=== PATIENT | male | born 1955 | race Caucasian/White ===

== ENCOUNTER 2017-04-23 07:35 | Day surgery (SDC) | payer OTHER ==
[2017-04-20 11:00] VITALS: BMI 29.8
--- NOTE | 2017-04-23 06:20 | P.GSHP ---
History of Present Illness H&P Date: 04/23/17 CHIEF COMPLAINT: Cholecystitis HISTORY OF PRESENT ILLNESS: The patient is a 62-year-old male who presents with history of epigastric including right upper quadrant abdominal pain. He underwent diagnostic studies for the gallbladder. Separately his clinical picture was consistent with cholecystitis. Now he presents for surgical intervention. PAST MEDICAL HISTORY: Please see list PAST SURGICAL HISTORY: Please see list MEDICATIONS: Please see list ALLERGIES: Denies. SOCIAL HISTORY: No illicit drug use or recent tobacco use FAMILY HISTORY: Pertinent for gallbladder disease REVIEW OF ORGAN SYSTEMS: CONSTITUTIONAL: No reports of fevers or chills. HEENT: Denies any troubles with the vision or hearing. ENDOCRINE: No reports of hypothyroidism. No diabetes. RESPIRATORY: No recent pneumonias. CARDIOVASCULAR: Denies chest pain or palpitations GI: Diverticulitis. MUSCULOSKELETAL: Has occasional joint pain including back pain. NEURO: No seizure disorders or headaches. No recent stroke. PSYCH: No depression or suicidal ideation. HEMATOLOGIC: No personal or family history of DVTs or pulmonary emboli. PHYSICAL EXAM: VITAL SIGNS: Afebrile vital signs stable GENERAL: Well-developed pleasant male in no acute distress. HEENT: No scleral icterus. Extraocular movements grossly intact. Moist buccal mucosa. NECK: Supple without lymphadenopathy. CHEST: Unlabored respirations. Equal bilateral excursions. CARDIOVASCULAR: Regular rate regular rhythm rhythm. Distal 2+ pulses. ABDOMEN: Soft, nondistended. Tender along the epigastrium and right upper quadrant. MUSCULOSKELETAL: No clubbing, cyanosis, or edema. NEURO :Moves all extremities 4+/5. PSYCH: Alert and oriented to person, place and time. ASSESSMENT: 1. Epigastric and right upper quadrant abdominal pain 2. Chronic cholecystitis PLAN: 1. Will need a laparoscopic cholecystectomy possible open. Benefits and risks were described. 2. Heparin for DVT prophylaxis 5000 units. 3. Antibiotic prophylaxis. 4. Will need CBC and comprehensive metabolic panel on day of his procedure. Past Medical History Past Medical History: Prostate Disorder Additional Past Medical History / Comment(s): HX OF PERFORATED DIVERTICULITIS WITH COLOSTOMY(04/25/2015) AND REVERSAL 2016. HAS ENLARGED PROSTATE. History of Any Multi-Drug Resistant Organisms: None Reported Past Surgical History: Appendectomy, Tonsillectomy Additional Past Surgical History / Comment(s): BILATERAL ROTATOR CUFF. 04/25/15 PERFORATED DIVERTICULITIS W/ COLOSTOMY AND REVERSAL 04/01/16. LYSIS OF ADHESIONS & HERNIA REPAIR. , CYST ON NECK, CIRCUMCISION, RIGHT KNEE ARTHROSCOPY , COLONOSCOPY. Past Anesthesia/Blood Transfusion Reactions: No Reported Reaction Additional Past Anesthesia/Blood Transfusion Reaction / Comment(s): stated " felt had a hard time breathing after bowel resection and colostomy in the recovery room" Smoking Status: Never smoker - Past Family History Brother(s) Family Medical History: Diabetes Mellitus Father Family Medical History: Diabetes Mellitus Mother Family Medical History: Cancer Additional Family Medical History / Comment(s): THYROID CA @ 18 YRS OLD Medications and Allergies Home Medications Medication Instructions Recorded Confirmed Type Pantoprazole Sodium [Protonix] 40 mg PO DAILY 04/20/17 04/20/17 History Vitamin B Complex 1 each PO DAILY 04/20/17 04/20/17 History Allergies Allergy/AdvReac Type Severity Reaction Status Date / Time Penicillins Allergy "PASSED Verified 04/20/17 10:50 OUT" & NAUSEA AND VOMITING.
[~2017-04-23 07:35] MED LIST: DEXAMETHASONE SOD PHOSPHATE 10 MG/ML 1 ML VIAL IV ONE; HEPARIN SODIUM,PORCINE 5,000 UNIT/ML 1 ML VIAL SQ ONE; HYDROmorphone 0.5 MG/0.5 ML SYRINGE IVP PRN; LIDOCAINE 1% 20 ML VIAL (10MG/ML) FOR IV START INTRADERMA PRN; ONDANSETRON 4 MG/2 ML VIAL IVP ONE; SCOPOLAMINE 1.5MG/72HR PATCH TRANSDERM ONE; ceFAZolin IN SWFI 2 GM/20 ML SYRINGE IVP ONE
[2017-04-23] MEDS ORDERED: LIDOCAINE 1% 20 ML VIAL (10MG/ML) FOR IV START INTRADERMA ONE (08:18)
[2017-04-23] MEDS: LACTATED RINGERS 1,000 ML IV SCH ×2 (08:19→17:09)
[2017-04-23 08:30] LABS: Basophils % (A) 1 %; CH 30.6; CHCM 35.2; Eosinophils # (A) 0.2 k/uL (0-0.7); Eosinophils % (A) 5 %; HCT 45.4 % (39.0-53.0); HDW 2.77; HGB 15.9 gm/dL (13.0-17.5); Luc # (Auto) 0.06; Luc % (Auto) 1; Lymphocytes # (A) 1.2 k/uL (1.0-4.8); Lymphocytes % (A) 25 %; MCH 30.6 pg (25.0-35.0); MCHC 35.1 g/dL (31.0-37.0); MCV 87.4 fL (80.0-100.0); Mean Platelet Volume 7.3; Monocytes # (A) 0.3 k/uL (0-1.0); Monocytes % (A) 6 %; Neutrophils # (A) 2.9 k/uL (1.3-7.7); Neutrophils % (A) 62 %; RDW 14.1 % (11.5-15.5); WBC 4.7 k/uL (3.8-10.6); WBC (Perox) 4.46
[2017-04-23 08:44] LABS: Anion Gap 10 mmol/L; Calcium 9.6 mg/dL (8.4-10.2); Carbon Dioxide 24 mmol/L (22-30); Chloride 108 mmol/L (98-107); Glucose 88 mg/dL (74-99); Non-African American GFR(MDRD) >60 (>60 ml/min/1.73 sqM); Sodium 142 mmol/L (137-145); Total Bilirubin 1.3 mg/dL (0.2-1.3); Total Protein 7.1 g/dL (6.3-8.2)
[2017-04-23 08:49] LABS: Blood Urea Nitrogen 15 mg/dL (9-20); Potassium 4.1 mmol/L (3.5-5.1)
[2017-04-23 08:50] LABS: ALT 32 U/L (21-72); AST 28 U/L (17-59); Alkaline Phosphatase 63 U/L (38-126)
[2017-04-23] MEDS ORDERED: ROCURONIUM BROMIDE 10 MG/ML 10 ML VIAL IV ONE (09:39)
[2017-04-23] MEDS ORDERED: LIDOCAINE 1% INJ 10MG/ML (20 ML MDV) ONE (09:39)
[2017-04-23] MEDS ORDERED: HYDROmorphone (PF) 1 MG/ML ONE (09:39)
[2017-04-23] MEDS ORDERED: fentaNYL (PF) 50 MCG/ML 2 ML AMP ONE (09:39)
[2017-04-23] MEDS ORDERED: NEOSTIGMINE 1 MG/ML 10 ML VIAL ONE (09:39)
[2017-04-23] MEDS ORDERED: PROPOFOL 10 MG/ML 20 ML VIAL IV ONE (09:39)
[2017-04-23] MEDS ORDERED: KETOROLAC 30 MG/ML 1 ML VIAL ONE (09:39)
[2017-04-23] MEDS ORDERED: GLYCOPYRROLATE 0.2 MG/ML 2 ML VIAL ONE (09:39)
[2017-04-23] MEDS ORDERED: MIDAZOLAM 2 MG/2 ML VIAL ONE (09:39)
[2017-04-23] MEDS ORDERED: SUCCINYLCHOLINE CHLORIDE 100 MG/5 ML SYR IV ONE (09:39)
[2017-04-23] MEDS ORDERED: LACTATED RINGERS 1,000 ML IV ONE (10:10)
[2017-04-23] MEDS ORDERED: BUPIVACAINE (PF) 0.25% 30 ML VIAL SQ ONE (10:13)
--- NOTE | 2017-04-23 11:07 | P.OP ---
Date of Procedure: 04/23/17 Description of Procedure: SURGEON: FAUZIA JOLLEY MD MAIL AGENT: None. PREOPERATIVE DIAGNOSES: 1. Chronic Cholecystitis. 2. Symptomatic gallstones. 3. Personal history of descending colostomy. 4. Diverticulitis. 5. History of peritoneal adhesions. 6. Overweight. POSTOPERATIVE DIAGNOSES: 1. Chronic Cholecystitis. 2. Symptomatic gallstones. 3. Personal history of descending colostomy. 4. Diverticulitis. 5. History of peritoneal adhesions. 6. Overweight. 7. Severe greater omental and peritoneal adhesions involving the midline, epigastrium, left upper quadrant, right upper quadrant from previous surgeries. OPERATION: 1. Laparoscopic lysis of adhesions over 30 minutes. 2. Laparoscopic cholecystectomy ANESTHESIA: General with 30 mL 0.25% Marcaine with epinephrine. ESTIMATED BLOOD LOSS: 10 mL. SPECIMENS REMOVED: Gallbladder. COMPLICATIONS: None. INDICATIONS: The patient is a 62-year-old male who presents with chronic cholecystitis. He additional diagnostic imaging including HIDA scan and ultrasound confirming gallstones and biliary dyskinesia. Surgical intervention with a laparoscopic cholecystectomy was described at length including injury to the biliary tree, bleeding, infection, need for further surgery. Informed consent was obtained. DESCRIPTION OF THE PROCEDURE: The patient was brought to the operating room, laid in supine position. After general induction, the abdomen was prepped and draped in a standard sterile fashion. Prior to incision, a timeout protocol was confirmed with surgical team regarding patient's name, procedure to be performed including preoperative medications for which he had received heparin 5000 units subcutaneously as well as bilateral SCDs for DVT prophylaxis. As he had multiple abdominal surgeries involving the midline and left upper quadrant, a right upper quadrant approach was preferred. A transverse 5 mm incision right upper quadrant incision was made after localizing the skin. A 0 degree 5-mm laparoscopic trocar entry was performed and entered into the peritoneal cavity. Diagnostic laparoscopy confirmed no injury to bowel, viscera or mesentery. Severe peritoneal adhesions involving the greater omentum to the anterior abdominal wall involving the midline, left upper quadrant, right upper quadrant was identified. Additional 5-mm ports were placed along the left lateral abdominal wall followed by a left upper quadrant trocar placed under direct visualization. Next, two 5 mm trocars were placed along the right costal margin. The patient was placed in steep reverse Trendelenburg position with the right side up. Sonicision was used to divide her adhesions. Over 30 minutes of careful lysis of adhesions was performed without enterotomies. The gallbladder fundus was retracted to the anterior dome wall. Initial attention was brought to the infundibulum which was gently retracted in the inferior lateral approach. Using a Kittner, the cystic duct including the cystic artery was carefully skeletonized. A large 10 mm clip outside contractor sales was selected for the case. The 5 mm port at the left upper quadrant was exchanged for a 11 mm port. Two clips were placed proximally, and 2 clips were placed distally along the cystic duct and then divided using Sonicision. Again care was taken to avoid any injury to the biliary tree as the common bile duct was visualized during this portion of dissection. Next, the cystic artery was clipped twice proximally, once distally and then cauterized and divided using Sonicision. Electro-Bovie cautery was used to remove the gallbladder from the hepatic fossa without decompression of the gallbladder. Hemostasis was checked and found to be adequate after placing fibrin sheet along the hepatic fossa. The gallbladder was removed from the abdominal cavity using an Endo Catch bag and passed off for further pathological analysis. All instruments and pneumoperitoneum were removed from the abdominal cavity. The fascial defect was less than 8 mm for the 11-mm port site. The rest of incisions were reapproximated using 4-0 Monocryl in an interrupted subcuticular fashion. A total of 30 mL of 0.25% Marcaine with epinephrine was infiltrated to all wounds for postop analgesia. Dermabond was applied to the skin. At the end of the procedure, needle, sponge, and instrument count was verified correct by surgical dressing maker. The patient had tolerated the procedure well and was taken to postanesthesia care unit in stable condition. Intraoperative films were discussed and reviewed with the patient's family who were pleased with the level of care. FINDINGS: 1. Severe adhesions involving the entire abdomen. 2. Chronic cholecystitis. Plan - Discharge Summary New Discharge Prescriptions: No Action Vitamin B Complex 1 each PO DAILY Pantoprazole Sodium [Protonix] 40 mg PO DAILY Discharge Medication List Pantoprazole Sodium [Protonix] 40 mg PO DAILY 04/20/17 [History] Vitamin B Complex 1 each PO DAILY 04/20/17 [History]
[2017-04-23] MEDS ORDERED: NALOXONE 0.4 MG/ML 1 ML VIAL IV PRN (11:10)
[2017-04-23] MEDS ORDERED: TAMSULOSIN 0.4 MG CAP.ER.24H PO STA (15:13)
[2017-04-23] MEDS ORDERED: DOCUSATE 100 MG CAP PO PRN (17:27)
[2017-04-23] MEDS: KETOROLAC 30 MG/ML 1 ML VIAL IVP SCH ×2 (19:22→19:24)
--- NOTE | 2017-04-23 20:23 | P.PN ---
Progress Note - Text Progress Note Date: 04/23/17 Patient unable to urinate after this procedure. Patient then reported pre- existing prostate disorder. Flomax given. We'll observe overnight with potential discharge in the morning.
[2017-04-23] MEDS: ceFAZolin IN SWFI 2 GM/20 ML SYRINGE IVP SCH (22:45)
[2017-04-24] MEDS: HYDROcodone/APAP 5-325MG 1 EACH TAB PO PRN ×2 (00:15→06:25)
[2017-04-24] MEDS: ceFAZolin IN SWFI 2 GM/20 ML SYRINGE IVP SCH (05:23)
[2017-04-24 07:42] VITALS: BP 108/61; PULSE 52; RESP 18; TEMP 97.4
[2017-04-24] MEDS: PANTOPRAZOLE 40 MG TABLET PO SCH ×2 (07:48→08:08)
[2017-04-24] MEDS: TAMSULOSIN 0.4 MG CAP.ER.24H PO SCH ×2 (07:49→08:08)
[2017-04-24] MEDS ORDERED: TAMSULOSIN 0.4 MG CAP.ER.24H PO STA (08:29)
[2017-04-24] MEDS ORDERED: IBUPROFEN 600 MG TAB PO ONE (11:56)
--- NOTE | 2017-04-24 12:51 | P.DS ---
Providers Date of admission: 04/23/17 Expected date of discharge: 04/24/17 Attending physician: Beth Marino Primary care physician: Kayley Chandler - Discharge Diagnosis(es) (1) Enlarged prostate with lower urinary tract symptoms (LUTS) Current Visit: Yes Status: Acute (2) Urinary retention due to benign prostatic hyperplasia Current Visit: Yes Status: Chronic (3) H/O urinary retention Current Visit: Yes Status: Chronic (4) Gallstones Current Visit: No Status: Acute (5) Peritoneal adhesions Current Visit: No Status: Chronic (6) Right upper quadrant abdominal pain Current Visit: No Status: Acute Hospital Course: The patient was admitted to undergo outpatient laparoscopic cholecystectomy. Intraoperative findings demonstrated severe peritoneal adhesions. Additionally , for hemostasis, agents were used. Post procedure, he was unable to urinate. Patient then disclosed he had pre-existing prostate disorder. He personally had discontinued his Flomax. He was observed overnight where he received Flomax. A Moreno catheter was transiently placed and discontinued this morning. Prior to discharge, he was urinating well. Discharge instructions including dietary adjustment to prevent constipation were reviewed as well as high fiber diet of 30 g daily. Examples were given including fiber 1. Patient will follow -up in the office in 5 days. Additionally, Flomax was prescribed. Procedures: Laparoscopic cholecystectomy with lysis of adhesions Patient Condition at Discharge: Stable Plan - Discharge Summary Discharge Rx Participant: Yes New Discharge Prescriptions: New Hydrocodone/Acetaminophen [Etta 5-325] 1 - 2 each PO Q6HR PRN #20 tab PRN Reason: Pain Ibuprofen [Motrin] 600 mg PO Q8HR PRN #30 tab PRN Reason: Pain Tamsulosin [Flomax] 0.4 mg PO DAILY #30 cap Continue Vitamin B Complex 1 each PO DAILY Pantoprazole Sodium [Protonix] 40 mg PO DAILY Discharge Medication List Pantoprazole Sodium [Protonix] 40 mg PO DAILY 04/20/17 [History] Vitamin B Complex 1 each PO DAILY 04/20/17 [History] Hydrocodone/Acetaminophen [Etta 5-325] 1 - 2 each PO Q6HR PRN #20 tab 04/23/17 [Rx] Ibuprofen [Motrin] 600 mg PO Q8HR PRN #30 tab 04/23/17 [Rx] Tamsulosin [Flomax] 0.4 mg PO DAILY #30 cap 04/24/17 [Rx] Follow up Appointment(s)/Referral(s): Beth Marino MD [STAFF PHYSICIAN] - 04/27/17 12:00 pm (Call to confirm time) Patient Instructions/Handouts: *Surgery [facility] - (Anesthesia) Discharge Instructions Outpatient Surgery, Low Fat Diet (GEN), Laparoscopic Cholecystectomy (DC), Benign Prostatic Hypertrophy (DC) Activity/Diet/Wound Care/Special Instructions: No lifting over 4 pounds in 2 weeks. May shower. No bath tub soaks. Discharge Disposition: HOME SELF-CARE
--- NOTE | 2017-04-24 12:52 | P.PN ---
Progress Note - Text Progress Note Date: 04/24/17 Please see discharge note. Patient's prostatic disorder resolved with Flomax. Patient was deemed stable for discharge.
== END 2017-04-24 13:47 | disposition home or self-care (01) ==
LOC: OR 07:35 → 5MS5E 11:20 → OR 04-24 13:47
PROVIDERS: ATTEND Surgery Plastic and Reconstructive Surgery
DX: K80.10 Calculus of gallbladder with chronic cholecystitis without obstruction (principal); K66.0 Peritoneal adhesions (postprocedural) (postinfection); N40.1 Benign prostatic hyperplasia with lower urinary tract symptoms; R33.8 Other retention of urine; Z90.49 Acquired absence of other specified parts of digestive tract; K57.92 Diverticulitis of intestine, part unspecified, without perforation or abscess without bleeding; E66.3 Overweight; Z79.899 Other long term (current) drug therapy; Z88.0 Allergy status to penicillin
CPT/HCPCS: 88304; 80053; 85025; 47562; 49329; J2250; J1644; J1100; J2710; J0690 ×2; J2405; J2001; J3010; J1885; J1170; J0330; J2704

== ENCOUNTER → 2017-06-30 | Outpatient (CLI) | payer OTHER ==
--- NOTE | 2017-06-30 09:51 | CT ---
EXAMINATION TYPE: CT abdomen wo/w con DATE OF EXAM: 06/30/2017 COMPARISON: CT abdomen and pelvis April 25, 2015 HISTORY:. Abdominal pain and multiple abdominal surgeries per order . Hernia, cramping, recent cholec ystectomy. History of ruptured bowel with colostomy reversal. CT DLP: 1340.5 mGycm, Automated Exposure Control for Dose Reduction was Utilized. CONTRAST: CT scan of the abdomen is performed with oral and without and with IV Contrast, patient injected with 100 mL of Omnipaque 300. FINDINGS: LUNG BASES: No significant abnormality is appreciated. LIVER/GB: There is interval cholecystectomy with new surgical clips noted at level of gallbladder fos sa. PANCREAS: No significant abnormality is seen. SPLEEN: Splenomegaly is seen measuring 14.6 cm on long axis coronal image 60. ADRENALS: No significant abnormality is seen. KIDNEYS: No renal stones are seen on noncontrast images. Postcontrast images show symmetric cortical medullary uptake and excretion without evidence of hydronephrosis bilaterally. There are left-sided parapelvic cysts redemonstrated. BOWEL: Oral contrast does not reach colonic level making evaluation slightly suboptimal. There is no suspicious small or large bowel dilatation seen. There are scattered diverticula in proximal transver se colon without CT evidence for acute diverticulitis. LYMPH NODES: No greater than 1cm abdominal lymph nodes are appreciated. OSSEOUS STRUCTURES: There is hemangioma L4 vertebral body level redemonstrated. There is multilevel s purring in the spine seen. There is disc space narrowing with spurring L5-S1 level. OTHER: Just right of midline there is bowel containing hernia adjacent to vertical scar near axial im age 35, there is second bowel containing hernia just below this closer to umbilicus on axial image 42 . There is additional fat-containing ventral wall hernia superior to this just right of midline near ax ial image 28. Finally there is hernia into rectus muscle left midabdomen containing portion of contrast filled smal l bowel loop on axial image 42. IMPRESSION: There are now 2 right-sided ventral wall hernias just above umbilicus adjacent to vertica l scar both containing portions of small bowel loop and single left-sided ventral wall hernia above t he umbilicus into rectus muscle also containing portion of small bowel loop. No suspicious dilatation is seen to suggest obstruction at any of these 3 levels.
== END | disposition home or self-care (01) ==
LOC: RADCTMAIN 07:27
PROVIDERS: ATTEND Family Medicine
DX: K43.9 Ventral hernia without obstruction or gangrene (principal)
CPT/HCPCS: 74170; Q9967